=== PATIENT | male | born 1960 | race Caucasian/White ===

== ENCOUNTER 2020-03-30 20:47 | Emergency (ER) | payer MEDICARE, MEDICAID, SELFPAY ==
--- NOTE | ~2020-03-30 | XR_ITS ---
EXAMINATION: XR hand RT min 3V INDICATION: Right hand and first finger swelling TECHNIQUE: Three views of the right hand are obtained. COMPARISON: None available FINDINGS: There is no fracture. Soft tissue swelling is noted in the second finger. No radiopaque for eign body is identified. There is mild polyarticular osteoarthritis. IMPRESSION: 1. Second finger soft tissue swelling without radiopaque foreign body identified. Reviewed, dictated and finalized at location A. N BROKER IMPRESSION: 1. Second finger soft tissue swelling without radiopaque foreign body identifie galen.
[2020-03-30 21:13] VITALS: BP 135/79; PULSE 97; RESP 18; TEMP 36.8; O2SAT 95
--- NOTE | 2020-03-30 21:14 | ED.SKABFB ---
HPI - Skin/Abscess/Foreign Bdy General Chief complaint: Skin/Abscess/Foreign Body Stated complaint: swelling in finger Time Seen by Provider: 03/30/20 21:05 Source: patient Mode of arrival: ambulatory Limitations: no limitations History of Present Illness HPI narrative: 59-year-old man comes in today complaining of swelling and redness of his right index finger. Patient states he has normal range of motion is not tender. He recently did some hunting and thinks that he might have got some thorns from a locus tree in his finger. He has had no fever, numbness, tingling, night sweats, red streaks, nausea, vomiting or prior similar symptoms. He does not recall his last tetanus shot. complaint: foreign body and lesion Onset (ago): day(s) (3) Tetanus up to date: no Location: R hand Severity: mild Quality: foreign body sensation Relieving factors: none Exacerbating factors: none Context: other (Hunting) Treatments prior to arrival: none Related Data Home Medications Medication Instructions Recorded Confirmed aspirin 81 mg PO DAILY 03/30/20 03/30/20 atorvastatin 20 mg PO DAILY 03/30/20 03/30/20 lisinopril-hydrochlorothiazide 1 tablet PO DAILY 03/30/20 03/30/20 Allergies Allergy/AdvReac Type Severity Reaction Status Date / Time No Known Allergies Allergy Verified 03/30/20 21:22 Review of Systems Constitutional: Constitutional: Denies chills, Denies fever(s) and Denies weakness Cardiovascular: Cardiovascular: Denies chest pain, Denies rapid heart rate and Denies radiating jaw, neck or arm pain Respiratory: Respiratory: Denies cough and Denies dyspnea Gastrointestinal: Gastrointestinal: Denies abdominal pain, Denies nausea and Denies vomiting Musculoskeletal: Musculoskeletal: Reports as per HPI, Denies back pain, Denies arthralgias and Reports joint swelling Integumentary/Breasts: Skin/Breast: Denies pruritus, Denies erythema and Denies rash Hematologic/Lymphatic: Hematologic/Lymphatic: Denies easy bleeding and Denies easy bruising Allergic/Immunologic: Allergic/Immunologic: Denies lip swelling and Denies tongue swelling PMFSH Past Medical History Medical History (Updated 03/30/20 @ 21:48 by Kiran Garcia MD) Dyslipidemia Hypertension Social History Social History (Updated 03/30/20 @ 21:44 by Kiran Garcia MD) Smoking status: Former smoker Alcohol intake: never Substance use: never Living arrangements: with family Exam Const: General: healthy appearing, no acute distress and alert Nutritional Appearance: well nourished Orientation/consciousness: patient oriented x3 Resp: Effort & Inspection: normal respiratory effort and not labored Auscultation: clear to auscultation bilaterally, no rales, no rhonchi and no wheezes Cardio: Rate: regular rate Rhythm: regular rhythm Skin: General skin exam: normal color, no jaundice and no pallor Other: Firm swelling over the proximal phalanx of the right index finger. no tenderness and patient shows normal range of motion. No joint swelling, crepitus or laxity. There is purplish discoloration of the skin overlying the proximal phalanx with multiple small superficial lacerations. No drainage or fluctuance or induration Neuro: General: patient oriented x3, moves all extremities and no focal motor deficits Extrem: General: normal to inspection and no clubbing, cyanosis or edema Psych: Appearance: grossly normal and well kempt Mental Status: mental status grossly normal Affect: normal affect Attitude: cooperative Thought content: Yes Normal thought content present Discharge Plan Discharge Clinical Impression: Cellulitis Qualifiers: Site of cellulitis: extremity Site of cellulitis of extremity: finger Laterality: right Qualified Code(s): L03.011 - Cellulitis of right finger Patient Disposition: Home, Self-Care Condition: Stable Instructions: Antibiotic Form, Cellulitis (ED) Additional Instructions: Keep the wound clean
[2020-03-30] MEDS: CEPHALEXIN 500 MG CAPSULE 1000 MG PO (21:52)
[2020-03-30] MEDS: TETANUS,DIPHTHERIA,AC PERTUSSIS ADULT 0.5 ML (ADACEL) IM (21:52)
== END 2020-03-30 22:10 | disposition home or self-care (01) ==
PROVIDERS: Emergency Provider Emergency Medicine; PCP Family Medicine
DX: L03.011 Cellulitis of right finger (principal)
CPT/HCPCS: 73130; 90471; 90715; 99283; A9270

== ENCOUNTER 2022-10-03 11:26 | Outpatient (CLI) | payer OTHER, SELFPAY ==
[2022-10-03 12:35] LABS: Anion Gap 7 mmol/L (8-16); Blood Urea Nitrogen 16 mg/dL (7-18); Calcium 9.1 mg/dL (8.5-10.1); Carbon Dioxide 30 mmol/L (21-32); Chloride 102 mmol/L (98-108); Cholesterol 126 mg/dL (0-200); Estimated Glomerular Filt Rate > 60; Glucose 106 mg/dL (70-99); HDL Direct 31 mg/dL (40-60); LDL Cholesterol Calculated 76 mg/dL (<130); Osmolality Calculated 289 mOsm/kg (285-295); Potassium 4.5 mmol/L (3.5-5.1); Sodium 139 mmol/L (136-145); Triglycerides 95 mg/dL (0-150)
== END 2022-10-03 11:27 | disposition home or self-care (01) ==
LOC: CHSLAB 11:31
PROVIDERS: PCP Family Medicine; Visit Provider Family Medicine
DX: I10 Essential (primary) hypertension (principal); E78.2 Mixed hyperlipidemia
CPT/HCPCS: 36415; 80048; 80061

== ENCOUNTER 2022-10-30 11:07 | Outpatient (CLI) | payer OTHER, SELFPAY | END 2022-10-30 11:08 | disposition home or self-care (01) | LOC: CHSCARD 11:08 | PROVIDERS: PCP Family Medicine; Visit Provider Family Medicine | DX: R06.02 Shortness of breath (principal); R94.2 Abnormal results of pulmonary function studies | CPT/HCPCS: 94060; 94726; 94729 ==

== ENCOUNTER 2023-04-30 14:05 | Outpatient (CLI) | payer OTHER, SELFPAY ==
--- NOTE | ~2023-04-30 | XR_ITS ---
XR lumbar spine 2-3V DATE: 04/30/2023 14:32 INDICATION: Low back pain for many years. No injury recently. TECHNIQUE: AP, lateral, coned lateral lumbosacral views COMPARISON: 01/28/2017 MR lumbar spine 01/17/2017 lumbar spine FINDINGS: There is diffuse osteopenia. There is mild lumbar dextroscoliosis. There is prominent degenerative change at the apophyseal joints at L4-5 and L5-S1 in particular, with associated grade 1 anterolisthesis at L4-5. Degenerative spurring of the lower thoracic and lumbar spine. There is multilevel degenerative disc d isease, with severe at L1-2, mild at L2-3 and L3-4, moderately severe at L4-5. The sacroiliac joints are intact. IMPRESSION: Osteopenia Dextro scoliosis Multilevel degenerative disc disease Grade 1 anterolisthesis at L4-5 due to degenerative changes apophyseal joints Reviewed, dictated and finalized at location L. LE WORKER
--- NOTE | ~2023-04-30 | XR_ITS ---
XR knee RT 3V DATE: 04/30/2023 14:32 INDICATION: Right knee pain TECHNIQUE: AP, lateral, sunrise views COMPARISON: None FINDINGS: Moderate suprapatellar knee joint effusion. Osteopenia. There is tricompartment osteoarthritis with particular spurring at all 3 compartments, severe narrowi ng/virtual loss of joint space at the medial compartment. No fracture or dislocation, periosteal reaction or bone destruction, radiopaque intra-articular loose body or chondrocalcinosis is detected. IMPRESSION: Polyarticular osteoarthritis, particularly severe at the medial compartment Moderate suprapatellar knee joint effusion Reviewed, dictated and finalized at location L. ERER IMPRESSION: Polyarticular osteoarthritis, particularly severe at the medial com partment Moderate suprapatellar knee joint effusion
== END 2023-04-30 14:06 | disposition home or self-care (01) ==
PROVIDERS: PCP Family Medicine; Visit Provider Family Medicine
DX: M25.561 Pain in right knee (principal); M54.50 Low back pain, unspecified; M17.11 Unilateral primary osteoarthritis, right knee; M25.461 Effusion, right knee; M85.88 Other specified disorders of bone density and structure, other site; M41.86 Other forms of scoliosis, lumbar region; M51.36 Other intervertebral disc degeneration, lumbar region; M43.16 Spondylolisthesis, lumbar region
CPT/HCPCS: 72100; 73562